=== PATIENT | male | born 1990 | race Hispanic/Latino ===

== ENCOUNTER 2024-02-07 11:40 | Emergency (ER) | payer SELFPAY ==
[~2024-02-07] VITALS: Ht 172.7 cm; Wt 86.2 kg
[2024-02-07 11:45] VITALS: PULSE 71; RESP 18; TEMP 98.2
[2024-02-07] MEDS: LIDOCAINE HCL 2% LOCAL 20 ML VIAL INJ ONE (12:38)
[2024-02-07 13:07] VITALS: BP 121/80; PULSE 71; RESP 18; TEMP 98.3; O2SAT 100
== END 2024-02-07 12:30 | disposition home or self-care (01) ==
LOC: FSED 11:48
DX: S61.412A Laceration without foreign body of left hand, initial encounter (principal); W45.8XXA Other foreign body or object entering through skin, initial encounter; Y92.89 Other specified places as the place of occurrence of the external cause
CPT/HCPCS: 99284